=== PATIENT | male | born 1990 | race Caucasian/White ===

== ENCOUNTER 2017-01-27 10:56 | Emergency (ER) | payer SELFPAY ==
[~2017-01-27 10:56] MED LIST: ALEVE220 MG PO; MEDROLPAK4 PO; PR25 PO; T PO; ULTRAM50 PO; ZOFRAN ODT4 MG PO
== END 2017-01-27 11:53 | disposition home or self-care (01) ==
LOC: ER 10:56
DX: L03.213 Periorbital cellulitis (principal); F17.200 Nicotine dependence, unspecified, uncomplicated; Z79.899 Other long term (current) drug therapy
CPT/HCPCS: 99283; A9270-GY